=== PATIENT | male | born 1995 | race Caucasian/White ===

== ENCOUNTER 2023-09-27 14:55 | Emergency (ER) | payer OTHER, SELFPAY ==
[2023-09-27] VITALS (20 sets, daily range): BP systolic 102–139; BP diastolic 51–107; PULSE 65–87; RESP 16–24; TEMP 36.9; O2SAT 94–100; BMI 23.7
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
[2023-09-27 15:05] LABS: Basophils Absolute Auto 0.02 K/uL (0.00-0.30); Basophils Percent Auto 0.3 % (0.0-3.0); Eosinophils Absolute Auto 0.08 K/uL (0.00-0.50); Eosinophils Percent Auto 1.3 % (0.0-7.0); Hematocrit 47.5 % (37.0-53.0); Immature Granulocytes Abs Auto 0.09 K/uL (0.00-0.30); Immature Granulocytes Pct Auto 1.5 %; Lymphocytes Absolute Auto 1.28 K/uL (0.90-2.90); Lymphocytes Percent Auto 20.7 % (20-44); Mean Corpuscular HGB Conc 34 gm/dL (32-36); Mean Corpuscular Hemoglobin 31 pg (26-34); Mean Corpuscular Volume 93 fL (80-100); Monocytes Percent Auto 5.5 % (0.0-11.0); Neutrophils Absolute Auto 4.37 K/uL (1.7-7.0); Neutrophils Percent Auto 70.7 % (42.0-72.0); Platelet Count* 231 K/uL (140-440); RDW Coefficient of Variation % 11.9 % (11.5-15.5); White Blood Count* 6.18 K/uL (4.50-11.00)
[2023-09-27 15:08] LABS: Slide Review Reflex No
[2023-09-27 15:27] LABS: Chloride* 106 mmol/L (96-114); Potassium* 4.1 mmol/L (3.6-5.1); Sodium* 140 mmol/L (135-149)
[2023-09-27 15:29] LABS: Creatinine* 0.8 mg/dL (0.5-1.5); Est. Creatinine Clearance* 156.75; Estimated Glomerular Filt Rate 124 ml/min
[2023-09-27 15:30] LABS: Anion Gap 9 mEq/L (7-15); Blood Urea Nitrogen* 13 mg/dL (5-24); Calcium* 9.2 mg/dL (8.4-10.6); Carbon Dioxide* 25 mmol/L (20-32); Ethanol* 0.07 % (0.01-0.03); Glucose* 105 mg/dL (60-115)
[2023-09-27] MEDS: HYDROmorphone 0.5 mg/0.5 ml inj IVP ×2 (15:45→17:11)
[2023-09-27] MEDS: ONDANSETRON 2 MG/ML inj 4 MG IVP (15:45)
[2023-09-27] MEDS: KETOROLAC 30 MG/ML inj IM (17:46)
== END 2023-09-27 18:18 | disposition home or self-care (01) ==
PROVIDERS: Emergency Provider Emergency Medicine Emergency Medical Services
DX: S32.029A Unspecified fracture of second lumbar vertebra, initial encounter for closed fracture (principal); V19.3XXA Pedal cyclist (driver) (passenger) injured in unspecified nontraffic accident, initial encounter
CPT/HCPCS: 36415; 71045; 74177; 80048; 82077; 85025; 93005; 96374; 96375; 96376; 99284; 99291; J1170; J1885; J2405; Q9967